=== PATIENT | female | born 1930 | race Asian ===

== ENCOUNTER 2016-06-07 03:41 | Inpatient (IN) | payer MEDICARE, OTHER ==
[2016-06-07] VITALS (237 sets, daily range): BP systolic 114–161; BP diastolic 77–96; PULSE 59–64; TEMP 97.5–97.9; O2SAT 30–100
[~2016-06-07] VITALS: Ht 152.4 cm; Wt 46.2 kg
[2016-06-07 06:04] LABS: ADJUSTED CALCIUM 8.6 mg/dL (8.4-10.2); ALANINE AMINOTRANSFERASE 66 U/L (9-52); ALBUMIN 3.2 gm/dL (3.5-5.0); ALKALINE PHOSPHATASE 88 U/L (50-136); ANION GAP 17 mmol/L (7-16); BILIRUBIN,TOTAL 0.8 mg/dL (0.0-1.0); BLOOD UREA NITROGEN 11 mg/dL (7-17); CARBON DIOXIDE 16 mmol/L (22-30); CHLORIDE 111 mmol/L (98-107); CREATININE, serum 1.41 mg/dL (0.52-1.25); GLUCOSE 130 mg/dL (74-106); POTASSIUM 4.3 mmol/L (3.4-5.0); SALICYLATE < 1.0 mg/dL; SODIUM 143 mmol/L (137-145); TOTAL PROTEIN 6.3 gm/dL (6.4-8.2)
[2016-06-07 06:15] LABS: B-TYPE NATRIURETIC PEPTIDE 1280 pg/mL (0-450)
[2016-06-07] MEDS ORDERED: PRILOSEC 20MG20 MG PO (06:38)
[2016-06-07] MEDS ORDERED: MULTIPLE VITAMI1 CAP PO (06:39)
[2016-06-07] MEDS ORDERED: PRENATAL VITAMI1 TA3 PO (06:39)
[2016-06-07 08:01] LABS: MEAN CELL VOLUME 69 fl (80.0-100.0); MEAN CORPUSCULAR HGB CONC 31 g/dl (33.0-37.0); MEAN PLATELET VOLUME 9.4 fl (7.4-10.4); PLATELET COUNT 148 K/mm3 (130-400); RED BLOOD COUNT 4.51 M/mm3 (4.10-5.30); REDCELL DISTRIBUTION WIDTH-CV 24.9 % (11.5-14.5)
[2016-06-07 08:04] LABS: HEMATOCRIT 31.2 % (37.0-47.0); HEMOGLOBIN 9.7 g/dl (12.5-16.0); MEAN CORPUSCULAR HEMOGLOBIN 22 pg (27.0-31.0); WHITE BLOOD COUNT 20.6 K/mm3 (4.8-10.8)
[2016-06-07 08:21] LABS: INR 1.4 (0.8-3.0); PROTHROMBIN TIME 16.2 SECONDS (9.7-12.8)
[2016-06-07 08:24] LABS: PARTIAL THROMBOPLASTIN TIME 33.4 SECONDS (26.0-37.0)
[2016-06-07 08:29] LABS: BAND 11 % (0-10); METAMYELOCYTE 2 % (0-0); NEUTROPHILS 83 % (42.0-75.2); TOTAL CELLS COUNTED 100
[2016-06-07 08:31] LABS: ANISOCYTOSIS 4+; HYPOCHROMIA 3+; MICROCYTOSIS 3+; POIKILOCYTOSIS 4+; POLYCHROMASIA 1+; TARGET CELLS 2+
[2016-06-07 08:32] LABS: ACANTHOCYTES 2+; ADD PATHOLOGY DIFF REVIEW YES; BURR CELLS 2+
[2016-06-07 09:35] LABS: ARTERIAL BLD GAS O2 SATURATION 98.9 % (92-100); ARTERIAL BLD GAS TCO2 CT 7.5; ARTERIAL BLOOD GAS BASE EXCESS -21.5 (-2-2); ARTERIAL BLOOD GAS HCO3 6.8 meq/L (22-26)
[2016-06-07 09:36] LABS: ARTERIAL BLOOD GAS PO2 343.3 mmHg (80-100); ARTERIAL BLOOD GAS pH 7.08 (7.35-7.45)
[2016-06-07 09:37] LABS: ARTERIAL BLOOD GAS PHT 7.08 C (7.35-7.45); ARTERIAL BLOOD GAS PO2T 343.3 (80-100); ATS? YES
[2016-06-08] VITALS (16 sets, daily range): O2SAT 74–95
== END 2016-06-07 18:10 | disposition expired | DRG 871 ==
LOC: ICU 03:41
PROVIDERS: Internal Medicine Pulmonary Disease; Nurse Practitioner Family
PROC: 0BH17EZ Insertion of Endotracheal Airway into Trachea, Via Natural or Artificial Opening (ICD-10-PCS; principal; 2016-06-07)
PROC: 5A1935Z Respiratory Ventilation, Less than 24 Consecutive Hours (ICD-10-PCS; 2016-06-07)
DX: A41.9 Sepsis, unspecified organism (principal); R65.21 Severe sepsis with septic shock; I21.3 ST elevation (STEMI) myocardial infarction of unspecified site; N17.9 Acute kidney failure, unspecified; N39.0 Urinary tract infection, site not specified; E87.2 Acidosis; Z51.5 Encounter for palliative care; Z66 Do not resuscitate; I10 Essential (primary) hypertension; D50.9 Iron deficiency anemia, unspecified; I49.01 Ventricular fibrillation
CPT/HCPCS: 99223-AI; A4315; C1751; J0171; J0282; J1265; J1644; J2250; J7030; J7060